=== PATIENT | male | born 1950 | race Caucasian/White ===

== ENCOUNTER 2023-09-13 06:11 | Day surgery (SDC) | payer MEDICARE, OTHER, SELFPAY ==
[2023-09-13 08:03] VITALS: BP 138/81
[2023-09-13 08:07] VITALS: BMI 28.1
[2023-09-13 08:08] VITALS: BMI 28.1
[2023-09-13 09:56] VITALS: BP 122/81
[2023-09-13 10:00] VITALS: BP 122/85
[2023-09-13 10:16] VITALS: BP 130/86
== END 2023-09-13 10:30 | disposition home or self-care (01) ==
LOC: SDS 06:11
PROVIDERS: ATTENDING PHYSICIAN Internal Medicine Gastroenterology
DX: Z46.59 Encounter for fitting and adjustment of other gastrointestinal appliance and device (principal)
CPT/HCPCS: 43247

== ENCOUNTER → 2024-05-21 12:48 | Outpatient (REF) | payer MEDICARE, OTHER, SELFPAY | LOC: RCS 12:48 | PROVIDERS: ATTENDING PHYSICIAN Internal Medicine Cardiovascular Disease; FAMILY PHYSICIAN Family Medicine | DX: Z86.79 Personal history of other diseases of the circulatory system (principal) | CPT/HCPCS: 93306 ==